=== PATIENT | female | born 1965 | race Caucasian/White ===

== ENCOUNTER 2016-10-23 07:45 | Day surgery (SDC) | payer MEDICAID ==
[~2016-10-23] VITALS: Ht 171.4 cm
[~2016-10-23 07:45] MED LIST: AMBIEN DPS5 MG PO; ASA CHILDREN'S81 MG PO; BRINTELLIX20 MG PO; CULTURELLE1 CAP PO; HORIZANT600 MG PO; LIDODERM PATC1 PATCH TP; LINZESS145 MCG PO; PATADAY2.5 ML OU; PERCOCET 5 DPS1 TAB PO; REGLAN-DPS10 MG PO; ROBAXIN-DPS500 MG PO; TECFIDERA240 MG PO; VALIUM-DPS5 MG PO; VITAMIN D31000 UNIT PO; XANAX DPS0.5 MG PO; ZESTRIL DPS5 MG PO; ZOFRAN ODT4 MG PO
--- NOTE | 2016-10-25 08:34 | OR ---
ADMIT: 10/23/2016 RM/LOC: [facility] MR#: [id number] [address] [address] [place] [id number] Operative/Delivery Room Report SEX: F AGE: 51 : 1965 SURGERY DATE: 10/23/2016 SURGEON: Ke Camarena MD COMPUTER SYSTEMS ADMINISTRATOR: None. PREPROCEDURE DIAGNOSES: 1. Lumbar spondylosis. 2. Lumbago. POSTPROCEDURE DIAGNOSES: 1. Lumbar spondylosis. 2. Lumbago. PROCEDURE PERFORMED: Right L3, L4, L5, and S1 radiofrequency thermocoagulation. INDICATIONS FOR PROCEDURE: The patient is a pleasant female with history of chronic low back pain secondary to above mentioned diagnoses, who had a good pain relief with radiofrequency thermocoagulation in the past, comes here for repeat radiofrequency thermocoagulation. ANESTHESIA: Local without sedation. ESTIMATED BLOOD LOSS: Zero. COMPLICATIONS: None immediately evident. DESCRIPTION OF THE PROCEDURE: After the patient was seen in the preoperative area, vitals signs were taken. Prior to the procedure, the risks, benefits, and alternative therapies were discussed at length. Patient consent was obtained and updated. The patient was taken to the fluoroscopy suite and placed on the fluoroscopy table in the prone position. Pressure points were padded to comfort, monitors applied, and a timeout performed. ADMIT: 10/23/2016 RM/LOC: [facility] MR#: [id number] [address] [place] [address] Operative/Delivery Room Report SEX: F AGE: 51 : 1965 Fluoroscopy was brought in to identify the transverse process of the right- sided L3, L4, L5, and S1. To anesthetize the skin, a spinal cannula was placed near the junction of pedicle and transverse process. Once we obtained appropriate parameters for sensory motor testing, we proceeded with radiofrequency thermocoagulation at each level, which consisted of 80 degrees for 90 seconds. The patient tolerated the procedure well. The patient did not feel any stimulation below her knees. The patient was discharged to post anesthesia care without any immediate complications. PLAN: Discharge instructions were given, followup scheduled. The patient was discharged home with a trash truck driver. Ke Camarena MD/ watson JOB #: [id number] CC: Ke Camarena, Attending Physician Mamta Haq, Family Physician
== END 2016-10-23 10:10 | disposition home or self-care (01) ==
LOC: SSS 07:45
PROC: BR16YZZ Fluoroscopy of Lumbar Facet Joint(s) using Other Contrast (ICD-10-PCS; principal; 2016-10-23)
PROC: 3E0T3TZ Introduction of Destructive Agent into Peripheral Nerves and Plexi, Percutaneous Approach (ICD-10-PCS; principal; 2016-10-23)
DX: G89.29 Other chronic pain (principal); M50.20 Other cervical disc displacement, unspecified cervical region; M47.22 Other spondylosis with radiculopathy, cervical region; G43.711 Chronic migraine without aura, intractable, with status migrainosus; F41.8 Other specified anxiety disorders; E72.20 Disorder of urea cycle metabolism, unspecified; E71.43 Iatrogenic carnitine deficiency; G47.01 Insomnia due to medical condition; F17.200 Nicotine dependence, unspecified, uncomplicated; M47.26 Other spondylosis with radiculopathy, lumbar region; M46.1 Sacroiliitis, not elsewhere classified; Z88.0 Allergy status to penicillin; Z79.899 Other long term (current) drug therapy; Z79.82 Long term (current) use of aspirin

== ENCOUNTER 2016-11-21 07:03 | Day surgery (SDC) | payer MEDICAID ==
[~2016-11-21] VITALS: Ht 171.4 cm
--- NOTE | 2016-11-22 08:02 | OR ---
ADMIT: 11/21/2016 RM/LOC: [facility] MR#: [id number] [address] [id number] [address] [place] [address] Operative/Delivery Room Report SEX: F AGE: 51 : 1965 SURGERY DATE: 11/21/2016 SURGEON: Ke Camarena MD UNDERGROUND MINE MACHINERY MECHANIC: None. PREPROCEDURE DIAGNOSES: 1. Lumbar spondylosis. 2. Lumbago. POSTPROCEDURE DIAGNOSES: 1. Lumbar spondylosis. 2. Lumbago. PROCEDURE PERFORMED: Left L3, L4, L5, and S1 radiofrequency thermocoagulation. INDICATIONS FOR PROCEDURE: The patient is a pleasant female with history of chronic low back pain secondary to above-mentioned diagnoses comes here today for planned lumbar radiofrequency ablation. ANESTHESIA: Local without sedation. ESTIMATED BLOOD LOSS: Zero. COMPLICATIONS: None immediately evident. DESCRIPTION OF THE PROCEDURE: After the patient was seen in the preoperative area, vitals signs were taken. Prior to the procedure, the risks, benefits, and alternative therapies were discussed at length. Patient consent was obtained and updated. The patient was taken to the fluoroscopy suite and placed on the fluoroscopy table in the prone position. Pressure points were padded to comfort, monitors applied, and a timeout performed. ADMIT: 11/21/2016 RM/LOC: [facility] MR#: [id number] [address] [address] [address] MENJ[address] [place] [id number] Operative/Delivery Room Report SEX: F AGE: 51 : 1965 Fluoroscopy was brought in to identify the transverse process of the Left L3, L4, L5 and S1. To anesthetize the skin, a spinal cannula was placed near the junction of pedicle and transverse process. Once we obtained appropriate parameters for sensory motor testing, we proceeded with radiofrequency thermocoagulation at each level, which consisted of 80 degrees for 90 seconds. The patient tolerated the procedure well. The patient did not feel any stimulation below her knees. The patient was discharged to post anesthesia care without any immediate complications. PLAN: Discharge instructions were given, followup scheduled. The patient was discharged home with a salesperson driver. Ke Camarena MD/ watson JOB #: [id number] CC: Ke Camarena, Attending Physician Isaura Bob, Family Physician
== END 2016-11-21 09:04 | disposition home or self-care (01) ==
LOC: SSS 07:03
PROC: 3E0T3TZ Introduction of Destructive Agent into Peripheral Nerves and Plexi, Percutaneous Approach (ICD-10-PCS; principal; 2016-11-21)
PROC: BR16YZZ Fluoroscopy of Lumbar Facet Joint(s) using Other Contrast (ICD-10-PCS; principal; 2016-11-21)
DX: G89.29 Other chronic pain (principal); M47.816 Spondylosis without myelopathy or radiculopathy, lumbar region; Z79.82 Long term (current) use of aspirin; Z79.899 Other long term (current) drug therapy; Z88.0 Allergy status to penicillin; Z88.8 Allergy status to other drugs, medicaments and biological substances

== ENCOUNTER → 2017-04-09 | Outpatient (CLI) | payer MEDICAID | END | disposition home or self-care (01) | LOC: RAD.S 10:23 | DX: M79.604 Pain in right leg (principal) ==